=== PATIENT | female | born 1970 | race Two or more races ===

== ENCOUNTER 2018-10-25 12:09 | Emergency (ER) | payer OTHER ==
[~2018-10-25] VITALS: Ht 149.9 cm; Wt 59.0 kg
== END 2018-10-25 13:43 | disposition home or self-care (01) ==
LOC: ER 12:09
DX: S13.4XXA Sprain of ligaments of cervical spine, initial encounter (principal); V49.9XXA Car occupant (driver) (passenger) injured in unspecified traffic accident, initial encounter; Y93.89 Activity, other specified; Y92.488 Other paved roadways as the place of occurrence of the external cause; Y99.8 Other external cause status

== ENCOUNTER 2024-04-14 13:24 | Emergency (ER) | payer OTHER ==
[~2024-04-14] VITALS: Ht 149.9 cm; Wt 63.5 kg
[2024-04-14] MEDS ORDERED: COZAAR100 MG PO (14:56)
[2024-04-14 18:14] LABS: HEMATOCRIT 41.4 % (36.0-45.00); HEMOGLOBIN 14.4 g/dL (12.0-15.00); MEAN CELL VOLUME 85.9 fL (80.00-100.00); MEAN CORPUSCULAR HEMOGLOBIN 29.9 pg (27.00-32.0); MEAN CORPUSCULAR HGB CONC 34.8 g/dl (32.0-36.0); PLATELET COUNT 231 K/uL (150-450); RED BLOOD COUNT 4.82 M/uL (4.00-6.00); RED CELL DISTRIBUTION WIDTH 12.4 % (11.5-14.5)
[2024-04-14] MEDS ORDERED: ZITHROMAX TRI-500 MG PO (20:02)
[2024-04-14] MEDS ORDERED: ACETAMINOPHEN500 M1 PO (20:02)
[2024-04-14] MEDS ORDERED: GILTUSS COUGH-118 M1 PO (20:02)
== END 2024-04-14 21:07 | disposition home or self-care (01) ==
LOC: ER 13:26
PROVIDERS: Preventive Medicine Public Health & General Preventive Medicine
DX: J06.9 Acute upper respiratory infection, unspecified (principal); J00 Acute nasopharyngitis [common cold]; Z20.822 Contact with and (suspected) exposure to COVID-19; I10 Essential (primary) hypertension; E11.9 Type 2 diabetes mellitus without complications